=== PATIENT | female | born 1990 | race African-American/Black ===

== ENCOUNTER 2016-12-18 23:08 | Emergency (ER) | payer MEDICAID ==
[~2016-12-18] VITALS: Ht 177.8 cm; Wt 50.0 kg
[2016-12-18] MEDS ORDERED: SODIUM CHLORIDE 0.9% 1,000 ML IV NR (23:22)
[2016-12-18] MEDS ORDERED: MORPHINE SULFATE 4 MG/ML CPJ (NOT FOR IM USE) IV NR (23:30)
[2016-12-18 23:52] LABS: BASOPHILS % 0.5 % (0.0-2.0); EOSINOPHILS % 1.8 % (0.0-5.0); HEMATOCRIT. 34.8 % (36.0-48.0); HEMOGLOBIN. 11.9 g/dL (12.0-16.0); LYMPHOCYTES % 32.8 % (20.0-50.0); MEAN CORPUSCULAR HEMOGLOBIN 29.4 pg (28.0-32.0); MEAN CORPUSCULAR VOLUME 85.7 fL (81.0-99.0); MEAN PLATELET VOLUME 7.9 fl (7.4-10.4); MONOCYTES % 6.2 % (2.0-8.0); NEUTROPHILS % 58.7 % (40.0-76.0); PLATELET 239 x1000/uL (130-400); RED BLOOD CELL COUNT 4.06 mill/uL (4.2-5.4); RED CELL DISTRIBUTION WIDTH 13.1 % (11.6-14.6)
[2016-12-18 23:55] LABS: CHLORIDE 103 mEq/L (98-107)
[2016-12-18 23:58] LABS: HCG SCREEN POSITIVE
[2016-12-19 00:07] LABS: CARBON DIOXIDE 25 mEq/L (21-32)
[2016-12-19] MEDS ORDERED: DIPHENHYDRAMINE 50MG/ML VIAL IV ONE (00:15)
[2016-12-19 00:28] LABS: B-HCG QUANTITATIVE 19357 mIU/mL (<3)
[2016-12-19 02:32] LABS: *AMPHETAMINES SCREEN URINE NEGATIVE (NEGATIVE); *BARBITURATES SCREEN URINE NEGATIVE (NEGATIVE); *BENZODIAZEPINES SCREEN URINE NEGATIVE (NEGATIVE); *COCAINE SCREEN URINE NEGATIVE (NEGATIVE); METHADONE URINE SCREEN NEGATIVE (NEGATIVE); PHENCYCLIDINE URINE SCREEN NEGATIVE (NEGATIVE)
[2016-12-19 02:45] LABS: CANNABINOID URINE SCREEN PRESUMTIVE POSITIVE (NEGATIVE); OPIATES URINE SCREEN PRESUMTIVE POSITIVE (NEGATIVE)
[2016-12-19 05:42] VITALS: BP 116/73
== END 2016-12-19 05:46 | disposition home or self-care (01) ==
LOC: ER 23:14
DX: O03.9 Complete or unspecified spontaneous abortion without complication (principal); J45.909 Unspecified asthma, uncomplicated; F17.200 Nicotine dependence, unspecified, uncomplicated; F12.10 Cannabis abuse, uncomplicated
CPT/HCPCS: 36415; 76801; 80053; 80305; 84702; 84703; 85025; 86850; 86900; 86901; 96361; 96374; 96375; 99285; J1200; J2270

== ENCOUNTER 2021-01-23 06:07 | Emergency (ER) | payer MEDICAID ==
[~2021-01-23] VITALS: Ht 165.1 cm; Wt 75.0 kg
[2021-01-23] MEDS ORDERED: HYDR-4001 MT (08:50)
[2021-01-23] MEDS ORDERED: LIDO28.35 TP (08:50)
[2021-01-23] MEDS ORDERED: INUL2TAB5 MT (08:50)
[2021-01-23] MEDS ORDERED: HYDROCODONE/ACETAMINOPHEN 5/325MG TABLET PO SCH (09:00)
[2021-01-23 09:36] VITALS: BP 107/57
== END 2021-01-23 09:38 | disposition home or self-care (01) ==
LOC: ER 06:07
DX: K64.4 Residual hemorrhoidal skin tags (principal); F12.10 Cannabis abuse, uncomplicated; J45.909 Unspecified asthma, uncomplicated
CPT/HCPCS: 81025; 99283